=== PATIENT | female | born 1990 | race Caucasian/White ===

== ENCOUNTER 2016-12-29 05:29 | Inpatient (IN) | payer MEDICAID, OTHER ==
[2016-12-29] VITALS (8 sets, daily range): BP systolic 100–128; BP diastolic 56–85; PULSE 80–96; RESP 12–20; TEMP 96.9–98.8; O2SAT 98–100
[~2016-12-29 05:29] MED LIST: Z.0.NO CURRENT MEDS
[2016-12-29] MEDS ORDERED: ALPR.25 PO (05:54)
--- NOTE | 2016-12-29 06:01 | PD ---
HPI Chief Complaint: OD/ Ingestion Time Seen by Provider: 05:53 Travel History International Travel<30 days: No Contact w/Intl Traveler<30days: No Traveled to known affect area: No History of Present Illness HPI 26-year-old female was brought in by EMS after intentional Tylenol ingestion. Patient states that she took 30 pills of Tylenol PM around 4:45 AM. EMS was called. Per since brought to the ED for evaluation. Patient denies any headache. Patient denies any chest pain or shortness of breath. Patient denies abdominal pain. Patient states that she is about 11 weeks . Patient denies any vaginal discharge or bleeding. Patient denies any dysuria or frequency. Patient denies any fever chills. Patient denies any recent alcohol consumption. Patient denies other illicit drug abuse. PFSH Past Medical History Medical History: Denies Significant Hx Diminished Hearing: No ?: LMP: 10/08/16 Past Surgical History Surgical History: No Previous Surgery Social History Alcohol Use: Yes (OCCASIONALLY ) Tobacco Use: Yes (1/4PPD ) Substance Use: No (MARIJUANA ) Allergies-Medications (Allergen,Severity, Reaction): Coded Allergies: No Known Allergies (Verified , 03/12/08) Reported Meds & Prescriptions Reported Meds & Active Scripts Active Reported Xanax (Alprazolam) 0.25 Mg Tab 0.25 Mg PO Q4H PRN Review of Systems General / Constitutional: No: Fever Eyes: No: Visual changes HENT: No: Headaches Cardiovascular: No: Chest Pain or Discomfort Respiratory: No: Shortness of Breath Gastrointestinal: No: Abdominal Pain Genitourinary: No: Dysuria Musculoskeletal: No: Pain Skin: No Rash Neurologic: No: Weakness Psychiatric: No: Depression Endocrine: No: Polydipsia Hematologic/Lymphatic: No: Easy Bruising Physical Exam Narrative GENERAL: Well-nourished, well-developed patient. SKIN: Focused skin assessment warm/dry. HEAD: Normocephalic. EYES: No scleral icterus. No injection or drainage. NECK: Supple, trachea midline. No JVD or lymphadenopathy. CARDIOVASCULAR: Regular rate and rhythm without murmurs, gallops, or rubs. RESPIRATORY: Breath sounds equal bilaterally. No accessory muscle use. GASTROINTESTINAL: Abdomen soft, non-tender, nondistended. MUSCULOSKELETAL: No cyanosis, or edema. BACK: Nontender without obvious deformity. No CVA tenderness. Neurologic exam normal. Data Data Last Documented VS Vital Signs Date Time Temp Pulse Resp B/P (MAP) Pulse Ox O2 Delivery O2 Flow Rate FiO2 12/29/16 05:42 14 99 12/29/16 05:38 97.8 94 128/78 (95) Orders Orders Electrocardiogram (12/29/16 05:53) Complete Blood Count With Diff (12/29/16 05:53) Comprehensive Metabolic Panel (12/29/16 05:53) Prothrombin Time / Inr (Pt) (12/29/16 05:53) Act Partial Throm Time (Ptt) (12/29/16 05:53) Urinalysis - C+S If Indicated (12/29/16 05:53) Iv Access Insert/Monitor (12/29/16 05:53) Ecg Monitoring (12/29/16 05:53) Oximetry (12/29/16 05:53) Drug Screen, Random Urine (12/29/16 05:53) Alcohol (Ethanol) (12/29/16 05:53) Salicylates (Aspirin) (12/29/16 05:53) Tylenol (Acetaminophen) (12/29/16 05:53) Gc And Chlamydia Pcr (12/29/16 05:53) Wet Prep Profile (12/29/16 05:53) Sodium Chlor 0.9% 1000 Ml Inj (Ns 1000 M (12/29/16 06:00) MDM Medical Decision Making Medical Screen Exam Complete: Yes Emergency Medical Condition: Yes Differential Diagnosis Differential diagnosis including Tylenol overdose, depression, suicidal. Narrative Course 26-year-old female intentional overdose on Tylenol. Poison control contacted. Demetrio Martin MD Dec 29, 2016 06:01
[2016-12-29] MEDS: SODIUM CHLOR 0.9% 1000 ML INJ 1,000 ML IV SCH ×3 (06:25→20:39)
[2016-12-29 06:53] LABS: AUTOMATED NEUTROPHIL # 5.1 TH/MM3 (1.8-7.7); BASOPHIL # 0.1 TH/MM3 (0-0.2); BASOPHIL % 0.6 % (0.0-2.0); EOSINOPHIL # 0.5 TH/MM3 (0-0.4); EOSINOPHIL % 5.3 % (0.0-4.0); HEMATOCRIT 32.7 % (35.0-46.0); HEMO FLAGS DIFF FINAL; LYMPH % 28.8 % (9.0-44.0); LYMPHOCYTE # 2.6 TH/MM3 (1.0-4.8); MEAN CELL VOLUME 87.6 FL (80.0-100.0); MEAN CORPUSCULAR HEMOGLOBIN 28.3 PG (27.0-34.0); MEAN CORPUSCULAR HGB CONC 32.3 % (32.0-36.0); MONO % 8.3 % (0.0-8.0); PLATELET COUNT 373 TH/MM3 (150-450); RED BLOOD COUNT 3.73 MIL/MM3 (4.00-5.30); RED CELL DISTRIBUTION WIDTH 16.7 % (11.6-17.2); WHITE BLOOD COUNT 8.9 TH/MM3 (4.0-11.0)
[2016-12-29 07:14] LABS: APTT (PATIENT) 29.5 SEC (24.3-30.1); INTERNATIONAL NORMALIZED RATIO 1.1 RATIO; PROTHROMBIN TIME - PATIENT 11.9 SEC (9.8-11.6)
[2016-12-29 07:21] LABS: ACETAMINOPHEN 78.7 MCG/ML (10.0-30.0); ALT (GPT) 15 U/L (10-53); ANION GAP 10 MEQ/L (5-15); AST (GOT) 13 U/L (15-37); BICARBONATE 23.2 MEQ/L (21.0-32.0); BLOOD UREA NITROGEN 9 MG/DL (7-18); CHLORIDE 107 MEQ/L (98-107); GLOMERULAR FILTRATION RATE 122 ML/MIN (>89); SODIUM (NA) 140 MEQ/L (136-145)
[2016-12-29 07:23] LABS: ALKALINE PHOSPHATASE 68 U/L (45-117); TOTAL BILIRUBIN ADULT 0.3 MG/DL (0.2-1.0)
[2016-12-29 07:30] LABS: ALCOHOL LESS THAN 3 MG/DL (0-5)
[2016-12-29] MEDS ORDERED: ONDANSETRON HCL 4 MG/2 ML VIAL IV PUSH ONE (07:30)
[2016-12-29] MEDS ORDERED: SODIUM CHLOR 0.9% 1000 ML INJ 1,000 ML IV ONE (09:49)
[2016-12-29] MEDS ORDERED: ACETYLCYSTEINE 20% 6,000 MG/30 ML ORAL SOLN VIAL PO ONE (10:00)
[2016-12-29] MEDS ORDERED: SODIUM CHLORIDE 0.9% FLUSH 10 ML FLUSH IV FLUSH PRN ×2 (10:15→10:30)
--- NOTE | 2016-12-29 10:16 | HHI.HP ---
[facility] Service Family Medicine Primary Care Physician Everette Emmanuel M.D. Admission Diagnosis Diagnoses: International Travel<30 Days: No Contact w/Intl Traveler<30days: No Known Affected Area: No History of Present Illness 26 y/o female, 11wks gestation by LMP & TVUS, presents s/p intentional tylenol PM overdose between 3-4AM. Pt found out her was cheating on her with her best friend and she intentionally took 30 tylenol PM. She immediately told her mom, who called the ambulance and brought her to the ER. Pt did not feel sx until she started receiving rx in the ER; she vomited blue/green 1 time. She currently feels some anxiety and palpitations as if she is having a heart attack. She says she has felt an episode like this before, 1 month ago. This is the first time the pt has attempted to hurt herself. She has never tried to hurt anyone else. Her intention was not to hurt her baby. She has 2 kids at home and does feel safe at home. She does think the kids are safe with the , as he has never tried to hurt the kids or anyone else. Pt denies any radiating chest pain/ SOB/dizzyness. She does feel tired and groggy. Pt denies any abdominal pain, cxns, LOF, or VB. Her nausea is better s/p zofran. (Elizabeth Aguilera MD R2) Review of Systems ROS Limitations: Intoxication Constitutional: DENIES: Fever, Weight gain Endocrine: DENIES: Heat/cold intolerance, Polydipsia Eyes: DENIES: Photosensitivity, Double Vision Ears, nose, mouth, throat: DENIES: Throat pain, Hoarseness Respiratory: DENIES: Hemoptysis, Sputum production Cardiovascular: DENIES: Orthopnea, Claudication Gastrointestinal: DENIES: Abdominal pain, Black stools Genitourinary: DENIES: Sexual dysfunction, Urinary frequency Musculoskeletal: DENIES: Muscle aches, Stiffness Integumentary: DENIES: Pruritus, Rash Hematologic/lymphatic: DENIES: Bruising Immunologic/allergic: DENIES: Eczema Neurologic: DENIES: Abnormal gait, Headache Psychiatric: DENIES: Suicidal Ideation, Homicidal Ideation (Elizabeth Aguilera MD R2) Past Family Social History Past Medical History Obhx: at 11wk by TVUS and LMP 10/08/16, with +FH on last sonogram. Pt states in ER 1 month ago for subchorionic bleed. 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 home: feels safe at home, feels that kids are safe - per pt father the kids have been living with the grandpa in [place] since the mom slit her wrists 1 month ago, pt story is different from pt's father's story (Elizabeth Aguilera MD R2) Physical Exam Vital Signs Vital Signs Date Time Temp Pulse Resp B/P (MAP) Pulse Ox O2 Delivery O2 Flow Rate FiO2 12/29/16 09:57 81 17 100/56 (71) 100 Room Air 12/29/16 08:33 83 15 102/64 (77) 100 Room Air 12/29/16 06:01 12 98 12/29/16 05:42 14 99 12/29/16 05:38 97.8 94 14 128/78 (95) 98 Physical Exam GENERAL: This is a well-nourished, well-developed patient, in no apparent distress. pt is lying sleeping in bed when we come in for exam. throughout the H &P and exam the pt is spontaneously crying and visibly upset SKIN: No rashes, ecchymoses or lesions. Cool and dry. no excessive sweating HEAD: Atraumatic. Normocephalic. No temporal or scalp tenderness. EYES: fixed small pupils bilaterally. slight nystagmus noted on visual exam, vision intact. Extraocular motions intact. No scleral icterus. No injection or drainage. ENT: Nose without bleeding, purulent drainage or septal hematoma. Throat without erythema, tonsillar hypertrophy or exudate. Uvula midline. Airway patent. NECK: Trachea midline. No JVD or lymphadenopathy. Supple, nontender, no meningeal signs. CARDIOVASCULAR: Regular rate and rhythm without murmurs, gallops, or rubs. RESPIRATORY: Clear to auscultation. Breath sounds equal bilaterally. No wheezes , rales, or rhonchi. GASTROINTESTINAL: Abdomen soft, non-tender, nondistended. No hepato-splenomegaly , or palpable masses. No guarding. MUSCULOSKELETAL: Extremities without clubbing, cyanosis, or edema. No joint tenderness, effusion, or edema noted. No calf tenderness. Negative Homans sign bilaterally. NEUROLOGICAL: Awake and alert. Cranial nerves II through XII intact. Motor and sensory grossly within normal limits. Five out of 5 muscle strength in all muscle groups. Normal speech. Laboratory Laboratory Tests Test 12/29/16 06:10 12/29/16 08:45 White Blood Count 8.9 Red Blood Count 3.73 Hemoglobin 10.6 Hematocrit 32.7 Mean Corpuscular Volume 87.6 Mean Corpuscular Hemoglobin 28.3 Mean Corpuscular Hemoglobin Concent 32.3 Red Cell Distribution Width 16.7 Platelet Count 373 Mean Platelet Volume 7.3 Neutrophils (%) (Auto) 57.0 Lymphocytes (%) (Auto) 28.8 Monocytes (%) (Auto) 8.3 Eosinophils (%) (Auto) 5.3 Basophils (%) (Auto) 0.6 Neutrophils # (Auto) 5.1 Lymphocytes # (Auto) 2.6 Monocytes # (Auto) 0.7 Eosinophils # (Auto) 0.5 Basophils # (Auto) 0.1 CBC Comment DIFF FINAL Differential Comment Prothrombin Time 11.9 Prothromb Time International Ratio 1.1 Activated Partial Thromboplast Time 29.5 Blood Urea Nitrogen 9 Creatinine 0.59 Random Glucose 77 Total Protein 7.0 Albumin 3.4 Calcium Level 8.8 Alkaline Phosphatase 68 Aspartate Amino Transf (AST/SGOT) 13 Alanine Aminotransferase (ALT/SGPT) 15 Total Bilirubin 0.3 Sodium Level 140 Potassium Level 3.0 Chloride Level 107 Carbon Dioxide Level 23.2 Anion Gap 10 Estimat Glomerular Filtration Rate 122 Salicylates Level 1.8 Acetaminophen Level 78.7 103.5 Ethyl Alcohol Level LESS THAN 3 (Elizabeth Aguilera MD R2) Result Diagram: 12/29/1660912/29/16609 Caprini VTE Risk Assessment Caprini VTE Risk Assessment: No/Low Risk (score <= 1) Caprini Risk Assessment Model Point Value = 1 Point Value = 2 Point Value = 3 Point Value = 5 Age 41-60 Minor surgery BMI > 25 kg/m2 Swollen legs Varicose veins or History of unexplained or recurrent spontaneous Oral contraceptives or hormone replacement Sepsis (< 1 month) Serious lung disease, including pneumonia (< 1 month) Abnormal pulmonary function Acute myocardial infarction Congestive heart failure (< 1 month) History of inflammatory bowel disease Medical patient at bed rest Age 61-74 Arthroscopic surgery Major open surgery (> 45 min) Laparoscopic surgery (> 45 min) Malignancy Confined to bed (> 72 hours) Immobilizing plaster cast Central venous access Age >= 75 History of VTE Family history of VTE Factor V Leiden Prothrombin [id number] Lupus anticoagulant Anticardiolipin antibodies Elevated serum homocysteine Heparin-induced thrombocytopenia Other congenital or acquired thrombophilia Stroke (< 1 month) Elective arthroplasty Hip, pelvis, or leg fracture Acute spinal cord injury (< 1 month) Prophylaxis Regimen Total Risk Factor Score Risk Level Prophylaxis Regimen 0-1 Low Early ambulation 2 Moderate Order ONE of the following: *Sequential Compression Device (SCD) *Heparin 5000 units SQ BID 3-4 Higher Order ONE of the following medications: *Heparin 5000 units SQ TID *Enoxaparin/Lovenox 40 mg SQ daily (WT < 150 kg, CrCl > 30 mL/min) *Enoxaparin/Lovenox 30 mg SQ daily (WT < 150 kg, CrCl > 10-29 mL/min) *Enoxaparin/Lovenox 30 mg SQ BID (WT < 150 kg, CrCl > 30 mL/min) AND/OR *Sequential Compression Device (SCD) 5 or more Highest Order ONE of the following medications: *Heparin 5000 units SQ TID (Preferred with Epidurals) *Enoxaparin/Lovenox 40 mg SQ daily (WT < 150 kg, CrCl > 30 mL/min) *Enoxaparin/Lovenox 30 mg SQ daily (WT < 150 kg, CrCl > 10-29 mL/min) *Enoxaparin/Lovenox 30 mg SQ BID (WT < 150 kg, CrCl > 30 mL/min) AND *Sequential Compression Device (SCD) (Elizabeth Aguilera MD R2) Assessment and Plan Assessment and Plan 26 y/o female, 11wks gestation , presents s/p intentional tylenol PM overdose Code Status full code, thad acted Discussed Condition With Dr. Ray, (Elizabeth Aguilera MD R2) Attending Attestation Patient seen and examined. Case reviewed and discussed with the resident team. Agree with plan of care as discussed with me and documented in the resident note. she was seen on admission in her hospital room. agree with Thad act and sitter. (Odalys Zamora MD) Problem List: (1) Attempted suicide ICD Codes: T14.91 - Suicide attempt Status: Acute Plan: Pt admitted attempt to harm herself - Case management consult - DCF consult for kids - Thad Acted on admission - Psychiatry consult - 1:1 sitter for risk of AMA (2) Acetaminophen overdose ICD Codes: T39.1X1A - Poisoning by 4-Aminophenol derivatives, accidental ( unintentional), initial encounter Status: Acute Plan: 30 tylenol between 3-4AM 72hr protocol initiated as per poison tox - Acetylcysteine 3500 mg every 4 by mouth; last dose will be at 6 AM on 01/01 - AST/ALT: 13/15, Alk Phos: 68, PT/INR: 11.9/29.5 - Acetaminophen: 78.7 --> 103.5 - follow-up CBC, CMP, PT/INR, acetaminophen lab levels; next lab draw at 6 PM and 6 AM - Trend Acetaminophen level - peak should s/p 4hrs administration ACS w/u - initial EKG negative, f/u repeat EKG at 6PM - f/u troponin at 6PM (3) STD exposure ICD Codes: Z20.2 - Contact with and (suspected) exposure to infections with a predominantly sexual mode of transmission Status: Chronic Plan: Patient concerned about possible STD exposure - Follow up HIV antibody screen - Follow up RPR screen - Follow-up gonorrhea/chlamydia testing (4) FEN/PPX Status: Chronic Plan: Fluids: NS Electrolytes: f/u CMP q12, wnl now Nutrition: speech therapy for clearance for PO DVT ppx: Heparin 5000 q8, SCDs/TEDS (Elizabeth Aguilera MD R2) Physician Certification 2 Midnight Certification Type: Admission for Inpatient Services Order for Inpatient Services The services are ordered in accordance with Medicare regulations or non- Medicare payer requirements, as applicable. In the case of services not specified as inpatient-only, they are appropriately provided as inpatient services in accordance with the 2-midnight benchmark. Estimated LOS (days): 2 days is the estimated time the patient will need to remain in the hospital, assuming treatment plan goals are met and no additional complications. Post-Hospital Plan: Home (Elizabeth Aguilera MD R2) Problem Qualifiers (1) Acetaminophen overdose: Elizabeth Aguilera MD R2 Dec 29, 2016 10:16 Odalys Zamora MD Dec 30, 2016 13:38
[2016-12-29] MEDS ORDERED: SENNOSIDES 8.6 MG TAB PO PRN (10:30)
[2016-12-29] MEDS ORDERED: BISACODYL 10 MG SUPP RECTAL PRN (10:30)
[2016-12-29] MEDS ORDERED: DOCUSATE SODIUM 50 MG/SENNA 8.6 MG TAB PO PRN (10:30)
[2016-12-29] MEDS ORDERED: MAGNESIUM HYDROXIDE SUSP 30 ML CUP PO PRN (10:30)
[2016-12-29] MEDS ORDERED: ONDANSETRON HCL 4 MG/2 ML VIAL IVP PRN (10:30)
[2016-12-29] MEDS ORDERED: NALOXONE HCL 0.4 MG/ML AMP IV PRN (10:30)
[2016-12-29] MEDS ORDERED: LACTULOSE SYRUP 20 GM/30 ML CUP PO PRN (10:30)
--- NOTE | 2016-12-29 10:50 | PD ---
Data Data Last Documented VS Vital Signs Date Time Temp Pulse Resp B/P (MAP) Pulse Ox O2 Delivery O2 Flow Rate FiO2 12/29/16 09:57 81 17 100/56 (71) 100 Room Air 12/29/16 05:38 97.8 Orders Orders Electrocardiogram (12/29/16 05:53) Complete Blood Count With Diff (12/29/16 05:53) Comprehensive Metabolic Panel (12/29/16 05:53) Prothrombin Time / Inr (Pt) (12/29/16 05:53) Act Partial Throm Time (Ptt) (12/29/16 05:53) Urinalysis - C+S If Indicated (12/29/16 05:53) Iv Access Insert/Monitor (12/29/16 05:53) Ecg Monitoring (12/29/16 05:53) Oximetry (12/29/16 05:53) Drug Screen, Random Urine (12/29/16 05:53) Alcohol (Ethanol) (12/29/16 05:53) Salicylates (Aspirin) (12/29/16 05:53) Tylenol (Acetaminophen) (12/29/16 05:53) Gc And Chlamydia Pcr (12/29/16 05:53) Wet Prep Profile (12/29/16 05:53) Sodium Chlor 0.9% 1000 Ml Inj (Ns 1000 M (12/29/16 06:00) Tylenol (Acetaminophen) (12/29/16 08:45) Ondansetron Inj (Zofran Inj) (12/29/16 07:30) Acetylcysteine 20% Liq (Mucomyst 20% Liq (12/29/16 10:00) Acetylcysteine 20% Liq (Mucomyst 20% Liq (12/29/16 11:00) Sodium Chlor 0.9% 1000 Ml Inj (Ns 1000 M (12/29/16 09:49) Admit To Inpatient (12/29/16 ) Code Status (12/29/16 10:13) Vital Signs (Adult) ODILIA.Q4H (12/29/16 10:13) Activity Oob Ad Adriana (12/29/16 10:13) It Generalist / Telemetry ODILIA.Q8H (12/29/16 10:13) Notify Dr: Other (12/29/16 10:13) Resp Oxygen Michael C Titrat 1-4 L (12/29/16 ) Sodium Chloride 0.9% Flush (Ns Flush) (12/29/16 10:15) Sodium Chloride 0.9% Flush (Ns Flush) (12/29/16 21:00) Inpatient Certification (12/29/16 ) (Hub Use Only)Inp Phy Cons/Ref (12/29/16 ) Sodium Chloride 0.9% Flush (Ns Flush) (12/29/16 10:30) Sodium Chloride 0.9% Flush (Ns Flush) (12/29/16 21:00) Ondansetron Inj (Zofran Inj) (12/29/16 10:30) Comprehensive Metabolic Panel (12/30/16 06:00) Complete Blood Count With Diff (12/30/16 06:00) Prothrombin Time / Inr (Pt) (12/30/16 06:00) Pt Request For Service (12/29/16 10:21) Speech Therapy Consult-Eval/Tx (12/29/16 10:21) Case Management Consult (12/29/16 10:21) Scd Bilateral/Knee High ODILIA.BID (12/29/16 10:21) Naloxone Inj (Narcan Inj) (12/29/16 10:30) Docusate Sodium-Senna (Gema-Colace) (12/29/16 10:30) Magnesium Hydroxide Liq (Milk Of Magnesi (12/29/16 10:30) Sennosides (Senokot) (12/29/16 10:30) Bisacodyl Supp (Dulcolax Supp) (12/29/16 10:30) Lactulose Liq (Lactulose Liq) (12/29/16 10:30) Comprehensive Metabolic Panel (12/29/16 18:00) Prothrombin Time / Inr (Pt) (12/29/16 18:00) Tylenol (Acetaminophen) (12/29/16 18:00) Yfn Bilateral/Knee High ODILIA.QSHIFT (12/29/16 10:21) Admit Order (Ed Use Only) (12/29/16 ) Labs Laboratory Tests Test 12/29/16 06:10 12/29/16 08:45 White Blood Count 8.9 TH/MM3 Red Blood Count 3.73 MIL/MM3 Hemoglobin 10.6 GM/DL Hematocrit 32.7 % Mean Corpuscular Volume 87.6 FL Mean Corpuscular Hemoglobin 28.3 PG Mean Corpuscular Hemoglobin Concent 32.3 % Red Cell Distribution Width 16.7 % Platelet Count 373 TH/MM3 Mean Platelet Volume 7.3 FL Neutrophils (%) (Auto) 57.0 % Lymphocytes (%) (Auto) 28.8 % Monocytes (%) (Auto) 8.3 % Eosinophils (%) (Auto) 5.3 % Basophils (%) (Auto) 0.6 % Neutrophils # (Auto) 5.1 TH/MM3 Lymphocytes # (Auto) 2.6 TH/MM3 Monocytes # (Auto) 0.7 TH/MM3 Eosinophils # (Auto) 0.5 TH/MM3 Basophils # (Auto) 0.1 TH/MM3 CBC Comment DIFF FINAL Differential Comment Prothrombin Time 11.9 SEC Prothromb Time International Ratio 1.1 RATIO Activated Partial Thromboplast Time 29.5 SEC Blood Urea Nitrogen 9 MG/DL Creatinine 0.59 MG/DL Random Glucose 77 MG/DL Total Protein 7.0 GM/DL Albumin 3.4 GM/DL Calcium Level 8.8 MG/DL Alkaline Phosphatase 68 U/L Aspartate Amino Transf (AST/SGOT) 13 U/L Alanine Aminotransferase (ALT/SGPT) 15 U/L Total Bilirubin 0.3 MG/DL Sodium Level 140 MEQ/L Potassium Level 3.0 MEQ/L Chloride Level 107 MEQ/L Carbon Dioxide Level 23.2 MEQ/L Anion Gap 10 MEQ/L Estimat Glomerular Filtration Rate 122 ML/MIN Salicylates Level 1.8 MG/DL Acetaminophen Level 78.7 MCG/ML 103.5 MCG/ML Ethyl Alcohol Level LESS THAN 3 MG/DL [facility] Supervised Visit with MOISE: Yes Narrative Course 26 year-old woman intentional acetaminophen overdose, nerve I cracker suicidality, elevated levels, about 11 weeks . Poison control recommends treatment based on elevated levels in . Patient will be admitted. By mouth Mucomyst ordered. Diagnosis Primary Impression: Acetaminophen overdose Additional Impression: Attempted suicide Admitting Information Admitting Physician Requests: Admit Colby Davila MD Dec 29, 2016 10:50
[2016-12-29] MEDS ORDERED: ACETYLCYSTEINE 20% 6,000 MG/30 ML ORAL SOLN VIAL PO SCH (11:00)
[2016-12-29 11:04] LABS: BLOOD, URINE NEG (NEG); COMMENT (UR) CULT NOT INDICATED; CULTURE IF INDICATED CULT NOT INDICATED; GLUCOSE,URINE NEG (NEG); KETONE, URINE 10 mg/dL (NEG); MUCUS URINE MOD /lpf (OCC); NITRITE,URINE NEG (NEG); PH, URINE 6.5 (5.0-8.5); SQUAMOUS EPITHELIAL CELL URINE 1 /hpf (0-5); URINE COLOR YELLOW (YELLW/STRAW)
[2016-12-29] MEDS ORDERED: POTASSIUM CHLORIDE 10 MEQ CONTROLLED RELEASE TAB PO ONE ×2 (11:30→16:00)
[2016-12-29] MEDS ORDERED: RESP: ALBUTEROL 2.5 MG/IPRATROPIUM 0.5 MG NEB (PRN) NEB (11:30)
[2016-12-29] MEDS ORDERED: FAMOTIDINE 20 MG TAB PO PRN (11:33)
[2016-12-29] MEDS: ACETYLCYSTEINE 20% 6,000 MG/30 ML ORAL SOLN VIAL PO SCH ×3 (14:46→20:36)
--- NOTE | 2016-12-29 15:39 | EKG ---
Date Performed: 12/29/2016 Time Performed: 05:50:46 PTAGE: 26 years EKG: Sinus rhythm POSSIBLE LEFT ATRIAL ENLARGEMENT POSSIBLE RIGHT VENTRICULAR CONDUCTION DELAY BORDERLINE ECG NO PREVIOUS TRACING DOCTOR: Rubio Ventura Interpretating Date/Time 12/29/2016 15:38:16
--- NOTE | 2016-12-29 19:02 | EKG ---
Date Performed: 12/29/2016 Time Performed: 18:03:08 PTAGE: 26 years EKG: Sinus rhythm WITH FIRST DEGREE AV BLOCK POSSIBLE RIGHT VENTRICULAR CONDUCTION DELAY ABNORMAL ECG PREVIOUS TRACING : 12/29/2016 05.50 Compared to prior tracing no significant change DOCTOR: Rubio Ventura Interpretating Date/Time 12/29/2016 19:01:24
[2016-12-29 19:50] LABS: INTERNATIONAL NORMALIZED RATIO 1.2 RATIO; PROTHROMBIN TIME - PATIENT 13.4 SEC (9.8-11.6)
[2016-12-29 20:19] LABS: ACETAMINOPHEN 8.5 MCG/ML (10.0-30.0); ALKALINE PHOSPHATASE 60 U/L (45-117); ALT (GPT) 20 U/L (10-53); ANION GAP 11 MEQ/L (5-15); AST (GOT) 13 U/L (15-37); BETA HCG QUANT 64380 MIU/ML (0-5); BICARBONATE 18.1 MEQ/L (21.0-32.0); BLOOD UREA NITROGEN 5 MG/DL (7-18); CHLORIDE 110 MEQ/L (98-107); GLOMERULAR FILTRATION RATE 181 ML/MIN (>89); MAGNESIUM 1.7 MG/DL (1.5-2.5); POTASSIUM 3.5 MEQ/L (3.5-5.1); SODIUM (NA) 139 MEQ/L (136-145); TOTAL BILIRUBIN ADULT 0.4 MG/DL (0.2-1.0)
[2016-12-29] MEDS: SODIUM CHLORIDE 0.9% FLUSH 10 ML FLUSH IV FLUSH SCH (20:36)
[2016-12-29] MEDS ORDERED: SODIUM CHLORIDE 0.9% FLUSH 10 ML FLUSH IV FLUSH SCH (21:00)
--- NOTE | 2016-12-29 22:06 | RADRPT ---
EXAM DATE/TIME: 12/29/2016 15:36 [place] COMPARISON: No previous studies available for comparison. INDICATIONS : Evaluate for Cardiac activity. LAB(S): Beta-hC MEDICAL HISTORY : . Dyspnea. Depression. Anxiety. SURGICAL HISTORY : None. ENCOUNTER: Initial ACUITY: 1 day PAIN SCORE: 0/10 LOCATION: Bilateral pelvis MEASUREMENTS: UTERUS: 9.9 x 8.2 x 7.0 cm ENDOMETRIAL STRIPE: >20 mm RIGHT OVARY: 3.0 x 2.2 x 1.6 cm LEFT OVARY: 2.9 x 1.9 x 1.9 cm FREE FLUID: Yes CROWN RUMP LENGTH: 4.3 cm = 11 WKS 1 DAYS FHR: 167 BPM FINDINGS: The patient has a single live intrauterine which demonstrates cardiac activity and mo vement. heart rate is documented at 167 bpm. The crown-rump length correlates to a gestationa l age of 11 weeks, 1 day. There is some free fluid within the cul-de-sac. The gestational sac size correlates to a gestational age of 9 weeks, 2 days which is significantly different than crown-rump l ength calculation. Correlation with serial Beta HCG levels is suggested. The ovaries are normal ariel aterally. There is no adnexal mass. CONCLUSION: 1. Single live intrauterine with cardiac activity and movement. Derma-rump length c orrelates to a gestational age of 11 weeks, 1 day and gestational sac size correlates to a gestationa l age of 9 weeks, 2 days which is significantly different than crown-rump length calculation. Correl ation with serial beta HCG levels is suggested. 2. Free fluid within the cul-de-sac. 3. No evidence of adnexal mass. Chauncey Stovall MD on December 29, 2016 at 21:50 Board Certified Radiologist. This report was verified electronically.
[2016-12-29] MEDS ORDERED: CALCIUM CARBONATE 1.25 GM (CA 500 MG) TAB PO ONE (23:00)
[2016-12-30] MEDS: ACETYLCYSTEINE 20% 6,000 MG/30 ML ORAL SOLN VIAL PO SCH ×3 (02:12→09:12)
[2016-12-30] MEDS: SODIUM CHLOR 0.9% 1000 ML INJ 1,000 ML IV SCH ×2 (04:41→14:11)
[2016-12-30 05:19] LABS: BASOPHIL % 0.5 % (0.0-2.0); EOSINOPHIL # 0.4 TH/MM3 (0-0.4); EOSINOPHIL % 4.6 % (0.0-4.0); HEMATOCRIT 34.7 % (35.0-46.0); HEMO FLAGS DIFF FINAL; LYMPH % 34.2 % (9.0-44.0); LYMPHOCYTE # 3.2 TH/MM3 (1.0-4.8); MEAN CELL VOLUME 87.4 FL (80.0-100.0); MEAN CORPUSCULAR HEMOGLOBIN 28.9 PG (27.0-34.0); MEAN CORPUSCULAR HGB CONC 33.1 % (32.0-36.0); NEUT % 53.7 % (16.0-70.0); PLATELET COUNT 340 TH/MM3 (150-450); RED BLOOD COUNT 3.97 MIL/MM3 (4.00-5.30); RED CELL DISTRIBUTION WIDTH 16.6 % (11.6-17.2); WHITE BLOOD COUNT 9.2 TH/MM3 (4.0-11.0)
[2016-12-30 05:21] LABS: INTERNATIONAL NORMALIZED RATIO 1.2 RATIO; PROTHROMBIN TIME - PATIENT 13.3 SEC (9.8-11.6)
[2016-12-30 05:42] LABS: ANION GAP 11 MEQ/L (5-15); AST (GOT) 13 U/L (15-37); BICARBONATE 16.5 MEQ/L (21.0-32.0); BLOOD UREA NITROGEN 3 MG/DL (7-18); CHLORIDE 106 MEQ/L (98-107); GLOMERULAR FILTRATION RATE 257 ML/MIN (>89); POTASSIUM 3.8 MEQ/L (3.5-5.1); SODIUM (NA) 133 MEQ/L (136-145)
[2016-12-30 05:44] LABS: ALT (GPT) 17 U/L (10-53)
[2016-12-30 05:46] LABS: ALKALINE PHOSPHATASE 57 U/L (45-117); TOTAL BILIRUBIN ADULT 0.3 MG/DL (0.2-1.0)
[2016-12-30 08:00] VITALS: BP 106/58; PULSE 95; RESP 20; TEMP 98.1; O2SAT 98
[2016-12-30] MEDS: SODIUM CHLORIDE 0.9% FLUSH 10 ML FLUSH IV FLUSH SCH ×2 (09:00→20:07)
--- NOTE | 2016-12-30 11:58 | EKG ---
Date Performed: 12/30/2016 Time Performed: 11:07:38 PTAGE: 26 years EKG: SINUS TACHYCARDIA POSSIBLE RIGHT VENTRICULAR CONDUCTION DELAY ABNORMAL RHYTHM ECG PREVIOUS TRACING : 12/29/2016 18.03 Compared to prior tracing no significant change DOCTOR: Rubio Ventura Interpretating Date/Time 12/30/2016 11:57:20
[2016-12-30 12:00] VITALS: BP 116/61; PULSE 93; RESP 20; TEMP 97.9; O2SAT 95
[2016-12-30 12:36] LABS: CHLAMYDIA PCR NOT DETECTED (NOT DETECT); NEISSERIA PCR NOT DETECTED (NOT DETECT)
--- NOTE | 2016-12-30 13:22 | HHI.HP ---
[facility] Service Family Medicine Primary Care Physician Everette Emmanuel M.D. Admission Diagnosis Diagnoses: (1) Attempted suicide Diagnosis: Principal (2) Acetaminophen overdose Diagnosis: Principal (3) STD exposure Diagnosis: Principal (4) FEN/PPX Diagnosis: Principal International Travel<30 Days: No Contact w/Intl Traveler<30days: No Known Affected Area: No History of Present Illness Ms Gonsalves is a 26 y/o female, 11wks gestation by LMP & TVUS, who presented s/p intentional tylenol PM overdose between 3-4AM. Pt found out her was cheating on her with her best friend and she intentionally took 30 tylenol PM. She immediately told her mom, who called the ambulance and brought her to the ER. Pt did not feel sx until she started receiving rx in the ER; she vomited blue/green 1 time. She had some anxiety and palpitations as if she is having a heart attack initially. She says she has felt an episode like this before, 1 month ago. This is the first time the pt has attempted to hurt herself per pt. She has never tried to hurt anyone else. Her intention was not to hurt her baby. She has 2 kids at home and does feel safe at home. She does think the kids are safe with the , as he has never tried to hurt the kids or anyone else. Pt denies any radiating chest pain/ SOB/dizziness. She did feel tired and groggy. Pt denies any abdominal pain, cxns, LOF, or VB. Her nausea is better s/p zofran. Overnight she was on her murray act and is unhappy about multiple things including lack of silverware etc. It was explained that on a murray act things are more regulated. She feels better Physically and hopes she can go home. She had denied any prior attempts to hurt herself. However, her father had reported she had cut herself in the past month. Review of Systems Other ROS Limitations: Intoxication initially, more alert today Constitutional: DENIES: Fever, Weight gain Endocrine: DENIES: Heat/cold intolerance, Polydipsia Eyes: DENIES: Photosensitivity, Double Vision Ears, nose, mouth, throat: DENIES: Throat pain, Hoarseness Respiratory: DENIES: Hemoptysis, Sputum production Cardiovascular: DENIES: Orthopnea, Claudication Gastrointestinal: DENIES: Abdominal pain, Black stools Genitourinary: DENIES: Sexual dysfunction, Urinary frequency Musculoskeletal: DENIES: Muscle aches, Stiffness Integumentary: DENIES: Pruritus, Rash Hematologic/lymphatic: DENIES: Bruising Immunologic/allergic: DENIES: Eczema Neurologic: DENIES: Abnormal gait, Headache Psychiatric: DENIES: Suicidal Ideation, Homicidal Ideation Past Family Social History Past Medical History Obhx: at 11wk by TVUS and LMP 10/08/16, with +FH on last sonogram. Pt states in ER 1 month ago for subchorionic bleed. OBGYN is - x 2 (6 and 1 yr) - smoked during pregnancies Mental Health: - slitting wrists 1 month ago (per father) - slitting wrists this week (assumed) Past Surgical History none Allergies: Coded Allergies: No Known Allergies (Verified , 03/12/08) Family History Mother, Aunts : bipolar, unknown psychiatric disorders (possible schizophrenia) Social History smoke 1/2 ppd /day x 10 years (has cut down to 5cigs/day while ), social drinker - last drink a few months ago, denies alcohol abuse, +marijuana, denies IV/other drugs. 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: feels safe at home, feels that kids are safe - per pt father the kids have been living with the grandpa in [place] since the mom slit her wrists 1 month ago, pt story is different from pt's father's story Physical Exam Vital Signs Vital Signs Date Time Temp Pulse Resp B/P (MAP) Pulse Ox O2 Delivery O2 Flow Rate FiO2 12/30/16 12:00 97.9 93 20 116/61 (79) 95 12/30/16 08:00 98.1 95 20 106/58 (74) 98 12/29/16 20:12 93 12/29/16 20:00 98.8 96 17 121/63 (82) 98 12/29/16 16:00 98.0 80 19 117/60 (79) 98 Physical Exam GENERAL: This is a well-nourished, well-developed patient, in no apparent distress. pt was lying sleeping in bed when we come in for exam. yesterday the pt would spontaneously cry and was visibly upset. today she is more angry. her was in the room this am SKIN: No rashes, ecchymoses or lesions. Cool and dry. no excessive sweating HEAD: Atraumatic. Normocephalic. No temporal or scalp tenderness. EYES: fixed small pupils bilaterally. slight nystagmus noted on visual exam initially, vision intact. Extraocular motions intact. No scleral icterus. No injection or drainage. ENT: Nose without bleeding, purulent drainage or septal hematoma. Throat without erythema, tonsillar hypertrophy or exudate. Uvula midline. Airway patent. NECK: Trachea midline. No JVD or lymphadenopathy. Supple, nontender, no meningeal signs. CARDIOVASCULAR: Regular rate and rhythm without murmurs, gallops, or rubs. RESPIRATORY: Clear to auscultation. Breath sounds equal bilaterally. No wheezes , rales, or rhonchi. GASTROINTESTINAL: Abdomen soft, non-tender, nondistended. No hepato-splenomegaly , or palpable masses. No guarding. MUSCULOSKELETAL: Extremities without clubbing, cyanosis, or edema. No joint tenderness, effusion, or edema noted. No calf tenderness. Negative Homans sign bilaterally. NEUROLOGICAL: Awake and alert. Cranial nerves II through XII intact. Motor and sensory grossly within normal limits. Five out of 5 muscle strength in all muscle groups. Normal speech. Laboratory Laboratory Tests Test 12/29/16 18:38 12/30/16 00:57 12/30/16 04:20 Prothrombin Time 13.4 13.3 Prothromb Time International Ratio 1.2 1.2 Blood Urea Nitrogen 5 3 Creatinine 0.42 0.31 Random Glucose 75 79 Total Protein 6.0 6.1 Albumin 3.0 3.1 Calcium Level 7.4 7.7 Magnesium Level 1.7 Alkaline Phosphatase 60 57 Aspartate Amino Transf (AST/SGOT) 13 13 Alanine Aminotransferase (ALT/SGPT) 20 17 Total Bilirubin 0.4 0.3 Sodium Level 139 133 Potassium Level 3.5 3.8 Chloride Level 110 106 Carbon Dioxide Level 18.1 16.5 Anion Gap 11 11 Estimat Glomerular Filtration Rate 181 257 Protein Corrected Calcium 8.0 Troponin I LESS THAN 0.02 LESS THAN 0.02 Human Chorionic Gonadotropin, Quant 48428 Acetaminophen Level 8.5 LESS THAN 2.0 White Blood Count 9.2 Red Blood Count 3.97 Hemoglobin 11.5 Hematocrit 34.7 Mean Corpuscular Volume 87.4 Mean Corpuscular Hemoglobin 28.9 Mean Corpuscular Hemoglobin Concent 33.1 Red Cell Distribution Width 16.6 Platelet Count 340 Mean Platelet Volume 7.5 Neutrophils (%) (Auto) 53.7 Lymphocytes (%) (Auto) 34.2 Monocytes (%) (Auto) 7.0 Eosinophils (%) (Auto) 4.6 Basophils (%) (Auto) 0.5 Neutrophils # (Auto) 5.0 Lymphocytes # (Auto) 3.2 Monocytes # (Auto) 0.6 Eosinophils # (Auto) 0.4 Basophils # (Auto) 0.0 CBC Comment DIFF FINAL Differential Comment Result Diagram: 12/30/1641912/30/16419 Caprini VTE Risk Assessment Caprini VTE Risk Assessment: No/Low Risk (score <= 1) Caprini Risk Assessment Model Point Value = 1 Point Value = 2 Point Value = 3 Point Value = 5 Age 41-60 Minor surgery BMI > 25 kg/m2 Swollen legs Varicose veins or History of unexplained or recurrent spontaneous Oral contraceptives or hormone replacement Sepsis (< 1 month) Serious lung disease, including pneumonia (< 1 month) Abnormal pulmonary function Acute myocardial infarction Congestive heart failure (< 1 month) History of inflammatory bowel disease Medical patient at bed rest Age 61-74 Arthroscopic surgery Major open surgery (> 45 min) Laparoscopic surgery (> 45 min) Malignancy Confined to bed (> 72 hours) Immobilizing plaster cast Central venous access Age >= 75 History of VTE Family history of VTE Factor V Leiden Prothrombin [id number] Lupus anticoagulant Anticardiolipin antibodies Elevated serum homocysteine Heparin-induced thrombocytopenia Other congenital or acquired thrombophilia Stroke (< 1 month) Elective arthroplasty Hip, pelvis, or leg fracture Acute spinal cord injury (< 1 month) Prophylaxis Regimen Total Risk Factor Score Risk Level Prophylaxis Regimen 0-1 Low Early ambulation 2 Moderate Order ONE of the following: *Sequential Compression Device (SCD) *Heparin 5000 units SQ BID 3-4 Higher Order ONE of the following medications: *Heparin 5000 units SQ TID *Enoxaparin/Lovenox 40 mg SQ daily (WT < 150 kg, CrCl > 30 mL/min) *Enoxaparin/Lovenox 30 mg SQ daily (WT < 150 kg, CrCl > 10-29 mL/min) *Enoxaparin/Lovenox 30 mg SQ BID (WT < 150 kg, CrCl > 30 mL/min) AND/OR *Sequential Compression Device (SCD) 5 or more Highest Order ONE of the following medications: *Heparin 5000 units SQ TID (Preferred with Epidurals) *Enoxaparin/Lovenox 40 mg SQ daily (WT < 150 kg, CrCl > 30 mL/min) *Enoxaparin/Lovenox 30 mg SQ daily (WT < 150 kg, CrCl > 10-29 mL/min) *Enoxaparin/Lovenox 30 mg SQ BID (WT < 150 kg, CrCl > 30 mL/min) AND *Sequential Compression Device (SCD) Assessment and Plan Assessment and Plan 26 y/o female, 11wks gestation , presents s/p intentional tylenol PM overdose Problem List: (1) Attempted suicide ICD Codes: T14.91 - Suicide attempt Status: Acute Plan: Pt admitted attempt to harm herself - Case management consulted - DCF consult for kids - Thad Acted on admission - Psychiatry consult - 1:1 sitter for risk of AMA or repeat suicide attempt (2) Acetaminophen overdose ICD Codes: T39.1X1A - Poisoning by 4-Aminophenol derivatives, accidental ( unintentional), initial encounter Status: Acute Plan: 30 tylenol between 3-4AM 72hr protocol initiated as per poison tox - Acetylcysteine 3500 mg every 4 by mouth; last dose will be at 6 AM on 01/01. however, her tylenol levels are better now and she may not need the whole protocol - AST/ALT: 13/15, Alk Phos: 68, PT/INR: 11.9/29.5 - Acetaminophen: 78.7 --> 103.5 - follow-up CBC, CMP, PT/INR, acetaminophen lab levels; following protocol per poison control - Trended Acetaminophen level - peak should s/p 4hrs administration ACS w/u - initial EKG negative, f/u repeat EKG at 6PM - f/u troponin at 6PM (3) STD exposure ICD Codes: Z20.2 - Contact with and (suspected) exposure to infections with a predominantly sexual mode of transmission Status: Chronic Plan: Patient concerned about possible STD exposure - Follow up HIV antibody screen - Follow up RPR screen - Follow-up gonorrhea/chlamydia testing (4) FEN/PPX Status: Chronic Plan: Fluids: NS Electrolytes: f/u CMP q12, replace as necessary Nutrition: regular diet DVT ppx: Heparin 5000 q8, SCDs/TEDS Physician Certification 2 Midnight Certification Type: Admission for Inpatient Services Order for Inpatient Services The services are ordered in accordance with Medicare regulations or non- Medicare payer requirements, as applicable. In the case of services not specified as inpatient-only, they are appropriately provided as inpatient services in accordance with the 2-midnight benchmark. Estimated LOS (days): 3 3 days is the estimated time the patient will need to remain in the hospital, assuming treatment plan goals are met and no additional complications. Post-Hospital Plan: Not yet determined Notes: she may need inpatient Psychiatric bed with suicide attempt Problem Qualifiers (1) Acetaminophen overdose: Odalys Zamora MD Dec 30, 2016 13:21
[2016-12-30 16:00] VITALS: BP 123/58; PULSE 99; RESP 20; TEMP 98.7; O2SAT 96
--- NOTE | 2016-12-30 17:25 | PD.PSY.CON ---
Provisional Diagnosis Admission Date Dec 29, 2016 at 10:45 [place]. Adjustment disorder with mixed disturbance of emotion and conduct History of Present Illness Service Psychiatry Consult Requested By Attending physician Reason for Consult Tylenol overdose Primary Care Physician Everette Emmanuel M.D. HPI Patient is reportedly 11 weeks and overdosed on Tylenol PM prior to admission. Reportedly took approximately 40 Tylenol PM tablets. Review of Systems Except as stated in HPI: all other systems reviewed are Neg Past Family Social History Coded Allergies: No Known Allergies (Verified , 03/12/08) Reported Medications Alprazolam (Xanax) 0.25 Mg Tab, 0.25 MG PO Q4H Y for ANXIETY, TAB 0 Refills 12/29/16 Discontinued Reported Medications Miscellaneous (No Current Meds) Misc, 0 Refills 03/12/08 Current Medications Medications (Trade) Dose Ordered Sig/Loulou Route Start Time Stop Time Status Last Admin Sodium Chloride 1,000 ml @ 125 mls/hr Q8H IV 12/29/16 06:00 12/30/16 14:11 (NS Flush) 2 ml UNSCH PRN IV FLUSH 12/29/16 10:30 (NS Flush) 2 ml BID IV FLUSH 12/29/16 21:00 (Zofran Inj) 4 mg Q6H PRN IVP 12/29/16 10:30 (Narcan Inj) 0.4 mg UNSCH PRN IV 12/29/16 10:30 (Milk Of Magnesia Liq) 30 ml Q12H PRN PO 12/29/16 10:30 (Senokot) 17.2 mg Q12H PRN PO 12/29/16 10:30 (Dulcolax Supp) 10 mg DAILY PRN RECTAL 12/29/16 10:30 (Lactulose Liq) 30 ml DAILY PRN PO 12/29/16 10:30 (Duoneb Neb) 1 ampule Q6HR NEB PRN NEB 12/29/16 11:30 (Pepcid) 20 mg BID PRN PO 12/29/16 11:33 Physical Exam Vital Signs Vital Signs Date Time Temp Pulse Resp B/P (MAP) Pulse Ox O2 Delivery O2 Flow Rate FiO2 12/30/16 12:00 97.9 93 20 116/61 (79) 95 12/29/16 09:57 Room Air I/O 12/30/16 12/30/16 12/31/16 08:00 16:00 00:00 Intake Total 2949 ml Balance 2949 ml Lab Results Test 12/29/16 18:38 12/30/16 00:57 12/30/16 04:20 Prothrombin Time 13.4 SEC 13.3 SEC Prothromb Time International Ratio 1.2 RATIO 1.2 RATIO Blood Urea Nitrogen 5 MG/DL 3 MG/DL Creatinine 0.42 MG/DL 0.31 MG/DL Random Glucose 75 MG/DL 79 MG/DL Total Protein 6.0 GM/DL 6.1 GM/DL Albumin 3.0 GM/DL 3.1 GM/DL Calcium Level 7.4 MG/DL 7.7 MG/DL Magnesium Level 1.7 MG/DL Alkaline Phosphatase 60 U/L 57 U/L Aspartate Amino Transf (AST/SGOT) 13 U/L 13 U/L Alanine Aminotransferase (ALT/SGPT) 20 U/L 17 U/L Total Bilirubin 0.4 MG/DL 0.3 MG/DL Sodium Level 139 MEQ/L 133 MEQ/L Potassium Level 3.5 MEQ/L 3.8 MEQ/L Chloride Level 110 MEQ/L 106 MEQ/L Carbon Dioxide Level 18.1 MEQ/L 16.5 MEQ/L Anion Gap 11 MEQ/L 11 MEQ/L Estimat Glomerular Filtration Rate 181 ML/MIN 257 ML/MIN Protein Corrected Calcium 8.0 MG/DL Troponin I LESS THAN 0.02 NG/ML LESS THAN 0.02 NG/ML Human Chorionic Gonadotropin, Quant 06571 MIU/ML Acetaminophen Level 8.5 MCG/ML LESS THAN 2.0 MCG/ML White Blood Count 9.2 TH/MM3 Red Blood Count 3.97 MIL/MM3 Hemoglobin 11.5 GM/DL Hematocrit 34.7 % Mean Corpuscular Volume 87.4 FL Mean Corpuscular Hemoglobin 28.9 PG Mean Corpuscular Hemoglobin Concent 33.1 % Red Cell Distribution Width 16.6 % Platelet Count 340 TH/MM3 Mean Platelet Volume 7.5 FL Neutrophils (%) (Auto) 53.7 % Lymphocytes (%) (Auto) 34.2 % Monocytes (%) (Auto) 7.0 % Eosinophils (%) (Auto) 4.6 % Basophils (%) (Auto) 0.5 % Neutrophils # (Auto) 5.0 TH/MM3 Lymphocytes # (Auto) 3.2 TH/MM3 Monocytes # (Auto) 0.6 TH/MM3 Eosinophils # (Auto) 0.4 TH/MM3 Basophils # (Auto) 0.0 TH/MM3 CBC Comment DIFF FINAL Differential Comment Assessment & Plan Problem List: (1) Adjustment disorder with mixed disturbance of emotions and conduct ICD Codes: F43.25 - Adjustment disorder with mixed disturbance of emotions and conduct Assessment & Plan Estimated LOS: days please call psychiatrist on-call when patient medically cleared. Patient needs psychiatric hospitalization for further evaluation and treatment. Aguilar Pereira MD Dec 30, 2016 17:25
[2016-12-30 20:00] VITALS: BP 141/75; PULSE 106; RESP 18; TEMP 96.7; O2SAT 96
[2016-12-30 20:02] VITALS: PULSE 99
[2016-12-30 22:11] VITALS: O2SAT 98
[2016-12-31 07:56] VITALS: O2SAT 97
[2016-12-31 08:00] VITALS: BP 106/52; PULSE 83; RESP 16; TEMP 97.9; O2SAT 98
[2016-12-31] MEDS: SODIUM CHLORIDE 0.9% FLUSH 10 ML FLUSH IV FLUSH SCH (08:39)
--- NOTE | 2016-12-31 09:01 | HHI.FPPN ---
Subjective Remarks Pt seen and examined bedside this a.m. Patient sleeping only walked into room, and when awakened the patient is in no acute distress. Patient states she feels better today and she is comfortable with the plan. The patient was able to talk to Dr. Pereira the psychiatrist, and she is comfortable with going to the inpatient floor and continuing counseling there. Patient denies any occult T eating or drinking fluids. The patient denies any nausea/vomiting. The patient denies any change in bowel movement. The patient denies any abdominal pain. Patient denies fever/chills overnight. The patient denies chest pain/shortness breath/dizziness. (Elizabeth Aguilera MD R2) Objective Vitals Vital Signs Date Time Temp Pulse Resp B/P (MAP) Pulse Ox O2 Delivery O2 Flow Rate FiO2 12/31/16 07:56 97 12/30/16 22:11 98 12/30/16 20:02 99 12/30/16 20:00 96.7 106 18 141/75 (97) 96 12/30/16 16:00 98.7 99 20 123/58 (79) 96 12/30/16 12:00 97.9 93 20 116/61 (79) 95 I/O 12/30/16 12/30/16 12/30/16 12/31/16 12/31/16 12/31/16 06:59 14:59 22:59 06:59 14:59 22:59 Intake Total 2829 ml 120 ml 3415 ml 240 ml Output Total 2000 ml Balance 2829 ml 120 ml 1415 ml 240 ml Intake Oral 240 ml 120 ml 2040 ml 240 ml IV Total 2589 ml 1375 ml Output Urine Total 2000 ml # Voids 2 1 2 # Bowel Movements 1 (Elizabeth Aguilera MD R2) Result Diagram: 12/30/16 0420 12/30/16 0420 Objective Remarks GENERAL: SKIN: Warm and dry. HEAD: Normocephalic. EYES: No scleral icterus. No injection or drainage. NECK: Supple, trachea midline. No JVD or lymphadenopathy. CARDIOVASCULAR: Regular rate and rhythm without murmurs, gallops, or rubs. RESPIRATORY: Breath sounds equal bilaterally. No accessory muscle use. GASTROINTESTINAL: Abdomen soft, non-tender, nondistended. MUSCULOSKELETAL: No cyanosis, or edema. BACK: Nontender without obvious deformity. No CVA tenderness. (Elizabeth Aguilera MD R2) A/P Assessment and Plan 26 y/o female, 11wks gestation , presented to ED s/p intentional tylenol PM overdose. Discharge Planning Patient is medically cleared as of today, and plan is to be discharged to psychiatric inpatient floor (Elizabeth Aguilera MD R2) Attending Attestation Patient seen and examined. Case reviewed and discussed with the resident team. Agree with plan of care as discussed with me and documented in the resident note. fortunately, her liver has done well and she is medically ready to be admitted to Psychiatry. Am very happy they will continue to care for her there as she is a risk for repeat problems at this time. (Odalys Zamora MD) Problem List: (1) Attempted suicide ICD Codes: T14.91 - Suicide attempt Status: Acute Plan: Pt admitted attempt to harm herself. Patient denies any current suicidal thoughts; she has no thoughts of hurting herself or hurting anyone else - Case management consulted - [facility] consult for jason Oneil Acted on admission - Psychiatry consult: Done. Plan for patient to be moved to psychiatric inpatient floor - 1:1 sitter for risk of AMA or repeat suicide attempt (2) Acetaminophen overdose ICD Codes: T39.1X1A - Poisoning by 4-Aminophenol derivatives, accidental ( unintentional), initial encounter Status: Acute Plan: 30 tylenol between 3-4AM on 12/29 72hr protocol initiated as per poison tox - Acetylcysteine 3500 mg every 4 by mouth; last dose will be at 6 AM on 01/01. however, her tylenol levels are decreased and protocol was d/c early : DONE NOW - initial labs: AST/ALT: 13/15, Alk Phos: 68, PT/INR: 11.9/29.5 - Acetaminophen: 78.7 --> 103.5 --> 8.5 --> less than 2.0 - following d/c of protocol per poison control ACS w/u - EKG negative x 2 - troponin negative x2 (3) STD exposure ICD Codes: Z20.2 - Contact with and (suspected) exposure to infections with a predominantly sexual mode of transmission Status: Chronic Plan: Patient concerned about possible STD exposure - Follow up HIV antibody screen - Follow up RPR screen - gonorrhea/chlamydia testing : negative (4) FEN/PPX Status: Chronic Plan: Fluids: NS Electrolytes:none Nutrition: regular diet DVT ppx: Heparin 5000 q8, SCDs/TEDS (Elizabeth Aguilera MD R2) Problem Qualifiers (1) Acetaminophen overdose: Elizabeth Aguilera MD R2 Dec 31, 2016 09:01 Odalys Zamora MD Dec 31, 2016 13:18
[2016-12-31 09:36] LABS: HEMATOCRIT 36.2 % (35.0-46.0); MEAN CORPUSCULAR HEMOGLOBIN 29.1 PG (27.0-34.0); PLATELET COUNT 353 TH/MM3 (150-450); RED BLOOD COUNT 4.11 MIL/MM3 (4.00-5.30); RED CELL DISTRIBUTION WIDTH 16.9 % (11.6-17.2); REVIEW FLAG FINAL; WHITE BLOOD COUNT 8.1 TH/MM3 (4.0-11.0)
[2016-12-31 10:06] LABS: BICARBONATE 22.7 MEQ/L (21.0-32.0); POTASSIUM 3.8 MEQ/L (3.5-5.1)
[2016-12-31] MEDS ORDERED: PREN29TA PO (10:38)
--- NOTE | 2016-12-31 10:39 | HHI.DCPOC ---
Discharge Care Plan Diagnosis: (1) Attempted suicide (2) Acetaminophen overdose Goals to Promote Your Health * To prevent worsening of your condition and complications * To maintain your health at the optimal level Directions to Meet Your Goals Take your medications as prescribed Follow your dietary instruction Follow activity as directed Keep your appointments as scheduled Take your immunizations and boosters as scheduled If your symptoms worsen call your PCP, if no PCP go to Urgent Care Center or Emergency Room Smoking is Dangerous to Your Health. Avoid second hand smoke Call the 24-hour hour crisis hotline for domestic abuse at Florian Ray MD R2 Dec 31, 2016 10:39
[2016-12-31] MEDS ORDERED: MULTIVIT/MIN/PREN/FOL AC/IRON PRENATAL TAB PO SCH (10:45)
--- NOTE | 2016-12-31 11:50 | HHI.DS ---
Discharge Summary Admission Date Dec 29, 2016 at 10:45 Discharge Date: Dec 31, 2016 Admitting Diagnosis (1) Attempted suicide Diagnosis: Principal Plan: Pt admitted attempt to harm herself. Patient denies any current suicidal thoughts; she has no thoughts of hurting herself or hurting anyone else - Case management consulted - [facility] consult for jason Oneil Acted on admission - Psychiatry consult: Done. Plan for patient to be moved to psychiatric inpatient floor - 1:1 sitter for risk of AMA or repeat suicide attempt ICD Codes: T14.91 - Suicide attempt Status: Acute (2) Acetaminophen overdose Diagnosis: Principal Plan: 30 tylenol between 3-4AM on 12/29 72hr protocol initiated as per poison tox - Acetylcysteine 3500 mg every 4 by mouth; last dose will be at 6 AM on 01/01. however, her tylenol levels are decreased and protocol was d/c early : DONE NOW - initial labs: AST/ALT: 13/15, Alk Phos: 68, PT/INR: 11.9/29.5 - Acetaminophen: 78.7 --> 103.5 --> 8.5 --> less than 2.0 - following d/c of protocol per poison control ACS w/u - EKG negative x 2 - troponin negative x2 ICD Codes: T39.1X1A - Poisoning by 4-Aminophenol derivatives, accidental ( unintentional), initial encounter Status: Acute (3) STD exposure Diagnosis: Principal Plan: Patient concerned about possible STD exposure - Follow up HIV antibody screen - Follow up RPR screen - gonorrhea/chlamydia testing : negative ICD Codes: Z20.2 - Contact with and (suspected) exposure to infections with a predominantly sexual mode of transmission Status: Chronic (4) FEN/PPX Diagnosis: Principal Plan: Fluids: NS Electrolytes:none Nutrition: regular diet DVT ppx: Heparin 5000 q8, SCDs/TEDS Status: Chronic Brief History Ms Gonsalves is a 26 y/o female, 11wks gestation by LMP & TVUS, who presented s/p intentional tylenol PM overdose between 3-4AM. Pt found out her was cheating on her with her best friend and she intentionally took 30 tylenol PM. She immediately told her mom, who called the ambulance and brought her to the ER. Pt did not feel sx until she started receiving rx in the ER; she vomited blue/green 1 time. She had some anxiety and palpitations as if she is having a heart attack initially. She says she has felt an episode like this before, 1 month ago. This is the first time the pt has attempted to hurt herself per pt. She has never tried to hurt anyone else. Her intention was not to hurt her baby. She has 2 kids at home and does feel safe at home. She does think the kids are safe with the , as he has never tried to hurt the kids or anyone else. Pt denies any radiating chest pain/ SOB/dizziness. She did feel tired and groggy. Pt denies any abdominal pain, cxns, LOF, or VB. Her nausea is better s/p zofran. Overnight she was on her oneil act and is unhappy about multiple things including lack of silverware etc. It was explained that on a oneil act things are more regulated. She feels better Physically and hopes she can go home. She had denied any prior attempts to hurt herself. However, her father had reported she had cut herself in the past month. CBC/BMP: 12/31/16 0739 12/31/16 0739 Significant Findings Laboratory Tests Test 12/29/16 06:10 12/29/16 08:45 12/29/16 10:20 12/29/16 13:08 Red Blood Count 3.73 MIL/MM3 (4.00-5.30) Hemoglobin 10.6 GM/DL (11.6-15.3) Hematocrit 32.7 % (35.0-46.0) Monocytes (%) (Auto) 8.3 % (0.0-8.0) Eosinophils (%) (Auto) 5.3 % (0.0-4.0) Eosinophils # (Auto) 0.5 TH/MM3 (0-0.4) Prothrombin Time 11.9 SEC (9.8-11.6) Aspartate Amino Transf (AST/SGOT) 13 U/L (15-37) Potassium Level 3.0 MEQ/L (3.5-5.1) Salicylates Level 1.8 MG/DL (2.8-20.0) Acetaminophen Level 78.7 MCG/ML (10.0-30.0) 103.5 MCG/ML (10.0-30.0) Urine Specific [place] GREATER THAN 1.050 Urine Protein 30 mg/dL (NEG-TRACE) Urine Ketones 10 mg/dL (NEG) Urine Leukocyte Esterase SMALL (NEG) Urine Mucus MOD /lpf (OCC) Urine Benzodiazepines Screen POS (NEG) Urine Cannabinoids Screen POS (NEG) Test 12/29/16 18:38 12/30/16 00:57 12/30/16 04:20 12/31/16 07:39 Prothrombin Time 13.4 SEC (9.8-11.6) 13.3 SEC (9.8-11.6) Blood Urea Nitrogen 5 MG/DL (7-18) 3 MG/DL (7-18) 3 MG/DL (7-18) Creatinine 0.42 MG/DL (0.50-1.00) 0.31 MG/DL (0.50-1.00) Total Protein 6.0 GM/DL (6.4-8.2) 6.1 GM/DL (6.4-8.2) Albumin 3.0 GM/DL (3.4-5.0) 3.1 GM/DL (3.4-5.0) Calcium Level 7.4 MG/DL (8.5-10.1) 7.7 MG/DL (8.5-10.1) Aspartate Amino Transf (AST/SGOT) 13 U/L (15-37) 13 U/L (15-37) Chloride Level 110 MEQ/L (98-107) 108 MEQ/L (98-107) Carbon Dioxide Level 18.1 MEQ/L (21.0-32.0) 16.5 MEQ/L (21.0-32.0) Protein Corrected Calcium 8.0 MG/DL (8.5-10.1) Troponin I LESS THAN 0.02 NG/ML LESS THAN 0.02 NG/ML Human Chorionic Gonadotropin, Quant 24285 MIU/ML (0-5) Acetaminophen Level 8.5 MCG/ML (10.0-30.0) LESS THAN 2.0 MCG/ML Red Blood Count 3.97 MIL/MM3 (4.00-5.30) Hemoglobin 11.5 GM/DL (11.6-15.3) Hematocrit 34.7 % (35.0-46.0) Eosinophils (%) (Auto) 4.6 % (0.0-4.0) Sodium Level 133 MEQ/L (136-145) PE at Discharge GENERAL: SKIN: Warm and dry. HEAD: Normocephalic. EYES: No scleral icterus. No injection or drainage. NECK: Supple, trachea midline. No JVD or lymphadenopathy. CARDIOVASCULAR: Regular rate and rhythm without murmurs, gallops, or rubs. RESPIRATORY: Breath sounds equal bilaterally. No accessory muscle use. GASTROINTESTINAL: Abdomen soft, non-tender, nondistended. MUSCULOSKELETAL: No cyanosis, or edema. BACK: Nontender without obvious deformity. No CVA tenderness. Hospital Course Patient was admitted to the hospital and immediately started on the acetaminophen toxicity protocol. She was given the recommended acetylcysteine bolus and continued with dosage every 4 hours by mouth per poison control recommendations. Her liver enzymes remained within normal limits as well as her coagulation studies. She tolerated the acetylcysteine protocol without complications and her most recent acetaminophen level on hospital day 2 was less than 2. Her drug screen was positive for benzodiazepines (on Xanax) and marijuana at the time of admission. Patient requested to be screened for STI's and was negative for chlamydia and gonorrhea with HIV and syphilis testing pending at the time of discharge. She was evaluated by psychiatry on hospital day 2 who diagnosed the patient with adjustment disorder with mixed disturbance of emotions and conduct and currently recommends the patient be discharged to inpatient psychiatry for further evaluation and management. On hospital day 3 the patient had completed the acetylcysteine protocol and was cleared medically for discharge. She was discharged into inpatient psychiatry on hospital day 3 for further management. At the time of discharge she was given a prescription for a vitamin and encouraged to follow-up with her BEAUTY DIRECTOR and PCP within one week. Pt Condition on Discharge: Stable Discharge Disposition: Disc to Psych Care Fac Discharge Instructions DIET: Follow Instructions for: As Tolerated, No Restrictions, Diet Activities you can perform: Regular-No Restrictions Follow up Referrals: BEAUTY DIRECTOR - 1 Week PCP Follow-up - 1 Week New Medications: Vit-Iron Carbonyl ( Plus Iron 29-1 mg) 1 Tab Tab 1 TAB PO DAILY, #30 TAB 1 Refill Continued Medications: Alprazolam (Xanax) 0.25 Mg Tab 0.25 MG PO Q4H PRN for ANXIETY, TAB 0 Refills Florian Ray MD R2 Dec 31, 2016 11:50
== END 2016-12-31 12:52 | DRG 781 ==
LOC: NEPC 05:29 → NEDA 10:45 → N07A 12:07
PROVIDERS: ADMIT Family Medicine; ATTEND Family Medicine
DX: O9A.211 Injury, poisoning and certain other consequences of external causes complicating pregnancy, first trimester (principal); F41.9 Anxiety disorder, unspecified; F17.210 Nicotine dependence, cigarettes, uncomplicated; T39.1X2A Poisoning by 4-Aminophenol derivatives, intentional self-harm, initial encounter; Z3A.11 11 weeks gestation of pregnancy; O99.331 Smoking (tobacco) complicating pregnancy, first trimester; Z20.2 Contact with and (suspected) exposure to infections with a predominantly sexual mode of transmission; O99.341 Other mental disorders complicating pregnancy, first trimester
CPT/HCPCS: 76801; 80048; 80053; 80307; 81001; 83735; 84484; 84702; 85025; 85027; 85610; 85730; 86592; 86703; 87491; 87591; 93005; 96361; 96374; J2405; J7030

== ENCOUNTER 2016-12-31 13:32 | Inpatient (IN) | payer MEDICAID, OTHER ==
[~2016-12-31] VITALS: Ht 170.2 cm; Wt 48.6 kg
[2016-12-31 13:00] VITALS: BP 123/77; PULSE 90; RESP 18; TEMP 97.9; O2SAT 98
[~2016-12-31 13:32] MED LIST changes: +ALPR.25 PO; +PREN29TA PO; -Z.0.NO CURRENT MEDS
[2016-12-31] MEDS ORDERED: ACETAMINOPHEN 325 MG TAB PO PRN (14:00)
[2016-12-31] MEDS ORDERED: LORazepam 1 MG TAB PO PRN (14:00)
[2016-12-31] MEDS ORDERED: LORazepam 0.5 MG TAB PO PRN (14:00)
[2016-12-31] MEDS ORDERED: LORazepam 2 MG/ML VIAL IM PRN ×2 (14:00)
[2016-12-31] MEDS ORDERED: ALUMINUM/MAGNESIUM/SIMETH 30 ML CUP PO PRN (14:00)
[2016-12-31] MEDS ORDERED: MAGNESIUM HYDROXIDE SUSP 30 ML CUP PO PRN (14:00)
[2017-01-01 06:20] VITALS: BP 116/60; PULSE 102; RESP 18; TEMP 98; O2SAT 99
[2017-01-01] MEDS ORDERED: diphenhydrAMINE HCL 25 MG CAP PO PRN (11:00)
[2017-01-01 13:14] LABS: ANION GAP 9 MEQ/L (5-15); BLOOD UREA NITROGEN 5 MG/DL (7-18); CHLORIDE 103 MEQ/L (98-107); GLOMERULAR FILTRATION RATE 138 ML/MIN (>89); POTASSIUM 3.9 MEQ/L (3.5-5.1); SODIUM (NA) 137 MEQ/L (136-145)
[2017-01-01 13:27] LABS: LDL CHOLESTEROL 78 MG/DL (0-99)
--- NOTE | 2017-01-01 15:24 | HHI.HP ---
Provisional Diagnosis Admission Date Dec 31, 2016 at 13:32 Spencer I. Adjustment disorder with mixed disturbance of emotions and conduct Spencer II. Deferred Spencer III. Denies Spencer IV. Difficulty with current , stressful job Spencer V. 40 Certification of Person's Competence To Provide Express and Informed Consent I have personally examined Aleyda Gonsalves , a person being served at [facility] on, Jan 01, 2017 15:16. Express and informed consent means consent voluntarily given in writing, by a competent person, after sufficient explanation and disclosure of the subject matter involved to enable the person to make a knowing and willful decision without any element of force, fraud, deceit, duress, or other form of constraint or coercion. This person is 18 years of age or older, is not now known to be incompetent to consent to treatment with a guardian advocate, and does not have a health care surrogate or proxy currently making medical treatment decisions. I have found this person to be one of the following: [] Competent to provide express and informed consent, as defined above, for voluntary admission to this facility and is competent to provide express and informed consent for treatment. He/she has the consistent capacity to make well reasoned, willful, and knowing decisions concerning his or her medical or mental health treatment. The person fully and consistently understands the purpose of the admission for examination/placement and is fully capable of personally exercising all rights assured under [place] [] Incompetent to provide express and informed consent to voluntary admission, and this is incompetent to provide express and informed consent to treatment. The person must be transferred to involuntary status and a petition for a guardian advocate filed with the Circuit Court. [x] Refusing to provide express and informed consent to voluntary admission but is competent to provide express and informed consent for treatment. The person must be discharged or transferred to involuntary status. Form shall be completed within 24 hours of a person's arrival at the receiving facility and filed in the clinical record of each person: 1. Admitted on a voluntary basis 2. Permitted to provide express and informed consent to his/her own treatment 3. Allowed to transfer from involuntary to voluntary status 4. Prior to permitting a person to consent to his or her own treatment after having been previously found incompetent to consent to treatment. History of Present Illness Capacity: Has Capacity HPI Patient is a 26-year-old woman, currently in 11 weeks gestation, with no prior psychiatric history no prior psychiatric hospitalizations, suicide attempts or self-injurious behavior who was admitted to the medical floor on for medical stabilization after overdose in a suicide attempt on Tylenol PM in the context of psychosocial stressors. Patient was transferred to the inpatient psychiatry unit was medically stable. Patient states that she has been stressed over her baby, worried about history of hemorrhage in her uterus during this , and having started a job. Patient reports that prior ED visits in a different hospital she was prescribed Xanax. Patient states that prior to her admission she had a rough time which she took one tablet of Xanax and then another and then states that she blacked out and doesnt remember any events thereafter. Patient completely forthcoming with history states that she had called now on but as per chart was noted that patient told mother and mother called EMS. Patient states that her current stressors include her current , her job and distress of being told that her baby might not make it. 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 When recalling events of her overdose patient states that she doesnt recall taking the medications. Patient reports for the past couple of weeks she has been sleeping more, energy has been up and down, concentration or appetite, mood lately has been up and down denies feeling sad or depressed, denies having had any suicidal or homicidal ideations. Patient denies any manic psychotic symptoms. Patient noted to be guarded during interview. As per chart review was noted in previous to that one of the stressors included patient finding out that her cheated on her with her best friend had taken 30 tablets of Tylenol PM although patient did not mention this nor did she stated having taken 30 tablets of anything. Patient at this time denies SI, HI, AVH or delusions. Past psychiatric history: No previous psychiatric diagnosis, denies any previous psychiatric hospitalizations or medication trials, denies any previous suicide attempt or self-injurious behavior. Denies any history of abuse. Family psychiatric history: Father with bipolar disorder Substance use history: Tobacco use 5 cigarettes per day, denies any alcohol use , reports marijuana use in the past she reports having used last 6 weeks ago after finding out she was . Urine toxicology in the emergency department showed positive for marijuana and benzodiazepines. 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 Review of Systems Except as stated in HPI: all other systems reviewed are Neg Past Psych History Psychological trauma history Denies any history of abuse Violence risk - others (6 mos) Low Violence risk - self (6 mos) Moderate to high Substance Abuse History Drugs/Alcohol past 12 months Tobacco use(+), marijuana use(+) Past Family Social History Coded Allergies: No Known Allergies (Verified , 03/12/08) Active Scripts Vit-Iron Carbonyl ( Plus Iron 29-1 mg) 1 Tab Tab, 1 TAB PO DAILY, #30 TAB 1 Refill Prov:Florian Ray MD R2 12/31/16 Reported Medications Alprazolam (Xanax) 0.25 Mg Tab, 0.25 MG PO Q4H Y for ANXIETY, TAB 0 Refills 12/29/16 Discontinued Reported Medications Miscellaneous (No Current Meds) Misc, 0 Refills 03/12/08 Current Medications Medications (Trade) Dose Ordered Sig/Loulou Route Start Time Stop Time Status Last Admin (Ativan) 1 mg Q6H PRN PO 12/31/16 14:00 Future Hold (Ativan Inj) 1 mg Q6H PRN IM 12/31/16 14:00 Future Hold (Ativan) 0.5 mg Q12H PRN PO 12/31/16 14:00 Future Hold (Ativan Inj) 0.5 mg Q12H PRN IM 12/31/16 14:00 Future Hold (Tylenol) 650 mg Q4H PRN PO 12/31/16 14:00 (Milk Of Magnesia Liq) 30 ml DAILY PRN PO 12/31/16 14:00 (Mag-Al Plus Susp Liq) 30 ml Q6H PRN PO 12/31/16 14:00 (Benadryl) 25 mg Q6H PRN PO 01/01/17 11:00 Family History Mother with bipolar disorder Social History domiciled with and 2 children, children currently in the care of the father, patients mother visiting at this time, 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 2) verbal and communicative Physical Exam Patient upon evaluation with not noted to be in distress, no gross motor abnormalities, no tremors, no EPS, no psychomotor agitation or retardation noted Vital Signs Vital Signs Date Time Temp Pulse Resp B/P (MAP) Pulse Ox O2 Delivery O2 Flow Rate FiO2 01/01/17 06:20 98.0 102 18 116/60 (78) 99 Lab Results Labs reviewed. Test 01/01/17 11:12 Blood Urea Nitrogen 5 MG/DL Creatinine 0.53 MG/DL Random Glucose 75 MG/DL Calcium Level 9.7 MG/DL Sodium Level 137 MEQ/L Potassium Level 3.9 MEQ/L Chloride Level 103 MEQ/L Carbon Dioxide Level 25.0 MEQ/L Anion Gap 9 MEQ/L Estimat Glomerular Filtration Rate 138 ML/MIN Triglycerides Level 79 MG/DL Cholesterol Level 142 MG/DL LDL Cholesterol 78 MG/DL HDL Cholesterol 48.0 MG/DL Cholesterol/HDL Ratio 2.95 RATIO Mental Status Examination Appearance Appears stated age, in casual clothing, calm and cooperative interview. Fair eye contact Speech: Unremarkable Orientation: x3 Memory: Unremarkable Thought Process: Linear Thought Content: Unremarkable Language Fluid and spontaneous Fund of Knowledge Average Hallucination Type: None Attention and Concentration: Good Suicidal Ideation: No Previous Suicide Attempts: Yes Homicidal Ideation: No Previous Homicide Attempts: No Insight: Poor Judgment: Poor Affect: Anxious, Sad Mood: Sad, Anxious Motor Activity: Normal gait Assessment & Plan Problem List: (1) Adjustment disorder with mixed disturbance of emotions and conduct ICD Codes: F43.25 - Adjustment disorder with mixed disturbance of emotions and conduct Assessment & Plan Patient is a posterior woman with no past psychiatric history who was brought into the hospital after suicide attempt via overdose with 30 tablets of Tylenol PM in the context of multiple psychosocial stressors. Patient at this time is guarded and minimizes factors that contributed to her recent actions. Patient refuses any pharmacological intervention at this time. Patient will be admitted to the inpatient psychiatry unit on an involuntary status for safety and observation. Second opinion will be requested. Discharge planning in progress. Collateral pending from mother. Discharge Planning In progress Ganesh Adan MD Jan 01, 2017 15:24
[2017-01-01 15:35] LABS: HEMOGLOBIN A1a 1.1 %; HEMOGLOBIN A1b 1.4 %; HEMOGLOBIN Ao 85.5 %; HEMOGLOBIN P3 3.6 %
[2017-01-01 18:14] VITALS: BP 151/81; PULSE 112; RESP 18; TEMP 98.9; O2SAT 95
[2017-01-02 06:53] VITALS: BP 122/66; PULSE 90; RESP 17; TEMP 99; O2SAT 98
--- NOTE | 2017-01-02 07:41 | PD.PSY.CON ---
Provisional Diagnosis Admission Date Dec 31, 2016 at 13:32 Babcock I. 1. Adjustment disorder with mixed disturbance of emotions and conduct Babcock II. Deferred History of Present Illness Service Psychiatry Consult Requested By Dr. Adan Reason for Consult Second opinion for involuntary psychiatric hospitalization Primary Care Physician Everette Emmanuel M.D. HPI From Dr. Adan's H&P: Patient is a 26-year-old woman, currently in 11 weeks gestation, with no prior psychiatric history no prior psychiatric hospitalizations, suicide attempts or self-injurious behavior who was admitted to the medical floor on for medical stabilization after overdose in a suicide attempt on Tylenol PM in the context of psychosocial stressors. Patient was transferred to the inpatient psychiatry unit was medically stable. Patient states that she has been stressed over her baby, worried about history of hemorrhage in her uterus during this , and having started a job. Patient reports that prior ED visits in a different hospital she was prescribed Xanax. Patient states that prior to her admission she had a rough time which she took one tablet of Xanax and then another and then states that she blacked out and doesnt remember any events thereafter. Patient completely forthcoming with history states that she had called now on but as per chart was noted that patient told mother and mother called EMS. Patient states that her current stressors include her current , her job and distress of being told that her baby might not make it. 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 When recalling events of her overdose patient states that she doesnt recall taking the medications. Patient reports for the past couple of weeks she has been sleeping more, energy has been up and down, concentration or appetite, mood lately has been up and down denies feeling sad or depressed, denies having had any suicidal or homicidal ideations. Patient denies any manic psychotic symptoms. Patient noted to be guarded during interview. As per chart review was noted in previous to that one of the stressors included patient finding out that her cheated on her with her best friend had taken 30 tablets of Tylenol PM although patient did not mention this nor did she stated having taken 30 tablets of anything. Patient at this time denies SI, HI, AVH or delusions. Past psychiatric history: No previous psychiatric diagnosis, denies any previous psychiatric hospitalizations or medication trials, denies any previous suicide attempt or self-injurious behavior. Denies any history of abuse. Family psychiatric history: Father with bipolar disorder Substance use history: Tobacco use 5 cigarettes per day, denies any alcohol use , reports marijuana use in the past she reports having used last 6 weeks ago after finding out she was . Urine toxicology in the emergency department showed positive for marijuana and benzodiazepines. 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 Chart reviewed. On my exam, patient reports that she was afraid that she was miscarrying as she has a history of same and so went to [facility]. She was given Xanax and says that she tried to take a few doses when she got home. Her memory of the events after that is reportedly hazy. She does not recall making a Tylenol overdose. She denies any suicidal or homicidal ideation now. Denies any audiovisual hallucinations. No delusional material. No hypomanic or manic symptoms. 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 She says that her family is trying to get her a psychotherapist to assist with this. Remainder of the psychiatric ROS is negative. Past psychiatric history: The patient denies a history of inpatient or outpatient psychiatric treatment. She denies a history of suicide attempts. Family history: Patient denies family history of mental illness. Chemical dependency history: The patient denies any abuse of drugs or alcohol. Social history: The patient reports that she lives with her boyfriend and 2 children. She has a degree from [employer]. She works at a [employer]. Review of Systems Except as stated in HPI: all other systems reviewed are Neg Past Family Social History Coded Allergies: No Known Allergies (Verified , 03/12/08) Past Medical History See electronic medical record Active Scripts Vit-Iron Carbonyl ( Plus Iron 29-1 mg) 1 Tab Tab, 1 TAB PO DAILY, #30 TAB 1 Refill Prov:Florian Ray MD R2 12/31/16 Reported Medications Alprazolam (Xanax) 0.25 Mg Tab, 0.25 MG PO Q4H Y for ANXIETY, TAB 0 Refills 12/29/16 Discontinued Reported Medications Miscellaneous (No Current Meds) Misc, 0 Refills 03/12/08 Current Medications Medications (Trade) Dose Ordered Sig/Loulou Route Start Time Stop Time Status Last Admin (Ativan) 1 mg Q6H PRN PO 12/31/16 14:00 Future Hold (Ativan Inj) 1 mg Q6H PRN IM 12/31/16 14:00 Future Hold (Ativan) 0.5 mg Q12H PRN PO 12/31/16 14:00 Future Hold (Ativan Inj) 0.5 mg Q12H PRN IM 12/31/16 14:00 Future Hold (Tylenol) 650 mg Q4H PRN PO 12/31/16 14:00 (Milk Of Magnesia Liq) 30 ml DAILY PRN PO 12/31/16 14:00 (Mag-Al Plus Susp Liq) 30 ml Q6H PRN PO 12/31/16 14:00 (Benadryl) 25 mg Q6H PRN PO 01/01/17 11:00 Patient's Strengths (min. 2) In a monitored setting. Verbally fluent. Physical Exam Physical exam completed by hospitalist prior to transfer to inpatient psychiatry. On my examination today, the patient appears to be in no acute physical distress. No motor abnormalities noted. Labs and vitals reviewed: Vital Signs Vital Signs Date Time Temp Pulse Resp B/P (MAP) Pulse Ox O2 Delivery O2 Flow Rate FiO2 01/02/17 06:53 99.0 90 17 122/66 (84) 98 Lab Results Test 01/01/17 11:12 Blood Urea Nitrogen 5 MG/DL Creatinine 0.53 MG/DL Random Glucose 75 MG/DL Calcium Level 9.7 MG/DL Sodium Level 137 MEQ/L Potassium Level 3.9 MEQ/L Chloride Level 103 MEQ/L Carbon Dioxide Level 25.0 MEQ/L Anion Gap 9 MEQ/L Estimat Glomerular Filtration Rate 138 ML/MIN Hemoglobin A1c 5.6 % Triglycerides Level 79 MG/DL Cholesterol Level 142 MG/DL LDL Cholesterol 78 MG/DL HDL Cholesterol 48.0 MG/DL Cholesterol/HDL Ratio 2.95 RATIO Mental Status Examination Speech: Unremarkable Orientation: x3 Memory: Unremarkable Thought Process: Logical, Linear Thought Content: Unremarkable Hallucination Type: None Attention and Concentration: Good Suicidal Ideation: No Previous Suicide Attempts: No Homicidal Ideation: No Previous Homicide Attempts: No Insight: Poor Judgment: Poor Affect: Anxious Mood: Other (mildly dysphoric) Motor Activity: Normal gait Assessment & Plan Problem List: (1) Adjustment disorder with mixed disturbance of emotions and conduct ICD Codes: F43.25 - Adjustment disorder with mixed disturbance of emotions and conduct Assessment & Plan Given the circumstances of the patient's presentation here and her presentation on my examination today, I concur with Dr. Adan that the patient meets criteria for involuntary psychiatric hospitalization under the Oneil act. I completed the second opinion paperwork. Further care as per Dr. Adan. Thank you very much for this consultation. Signing off. Discharge Planning Per Arturo Alonso MD Jan 02, 2017 07:41
--- NOTE | 2017-01-02 15:46 | HHI.PYPN ---
Subjective Remarks Patient seen for follow-up, chart reviewed. Patient found sitting in hospital bed, cooperative interview. Patient states that she spoke with her children yesterday she was pleased about. Patient states that she is feeling somewhat stressed about being here in the hospital. Patient states that she was visited by her her mother and her best friend. Patient reports that her mother was trying to set up a follow-up appointment for mental health services but was reassured that the treatment team will arrange for that upon her discharge. When reflecting about events of [facility] patient states that her recent event had a lot to do with being told of the possibility of losing her . She continued to deny this recent overdose as a suicide attempt but able to acknowledge the dangerousness of that action. Patient stated that she was amenable to outpatient follow-up for individual therapy upon discharge. At this time patient reports feeling "good", denies SI, HI, AVH or delusions at this time. Search Planner spoke with patient's EARLY CHILDHOOD DIRECTOR physician Dr. Menon states that he is aware that the patient is the hospital, has ordered an US and plans on seeing the patient in the hospital for follow up later today. Review of Systems Except as stated in HPI: all other systems reviewed are Neg Objective Alert: Yes [place]: Person, Place, Date Mood: Calm Affect: Appropriate Memory Intact: Comment (intact) Hallucinations: Other (denies) Delusions: No Delusion Type: Other (denies) Suicidal: Ideation (denies) Homicidal: Ideation (denies) Insight/Judgment Limited insight, fair impulse control, fair judgment Vitals/IOs Vital Signs Date Time Temp Pulse Resp B/P (MAP) Pulse Ox O2 Delivery O2 Flow Rate FiO2 01/02/17 06:53 99.0 90 17 122/66 (84) 98 Intake and Output 01/02/17 01/02/17 01/02/17 07:59 15:59 23:59 Intake Total 360 ml Balance 360 ml Assessment & Plan Problem List: (1) Adjustment disorder with mixed disturbance of emotions and conduct ICD Codes: F43.25 - Adjustment disorder with mixed disturbance of emotions and conduct Assessment & Plan Patient at this time continues to deny any depressive symptoms, continues to minimize recent overdose denying it being a suicide attempt. Patient has been calm and cooperative with staff with no behavioral dyscontrol. Patient with adequate support system, plans on engaging in outpatient treatment with individual therapy. No psychotropic intervention at this time as patient would like to engage in therapy only due to current . Dr. Menon will see patient today. US ordered by Dr. Menon. Patient likely for discharge back to family tomorrow with referral to outpatient follow up. Discharge planning in progress. Justification for Cont. Inpt. At risk for further decompensation if at lower level of care Ganesh Adan MD Jan 02, 2017 15:46
[2017-01-02 16:23] LABS: AUTOMATED NEUTROPHIL # 6.9 TH/MM3 (1.8-7.7); BASOPHIL % 0.5 % (0.0-2.0); EOSINOPHIL # 0.4 TH/MM3 (0-0.4); EOSINOPHIL % 3.4 % (0.0-4.0); HEMATOCRIT 37.6 % (35.0-46.0); HEMO FLAGS DIFF FINAL; LYMPH % 22.1 % (9.0-44.0); LYMPHOCYTE # 2.3 TH/MM3 (1.0-4.8); MEAN CELL VOLUME 88.2 FL (80.0-100.0); MEAN CORPUSCULAR HEMOGLOBIN 28.8 PG (27.0-34.0); MEAN CORPUSCULAR HGB CONC 32.7 % (32.0-36.0); MONO % 6.6 % (0.0-8.0); NEUT % 67.4 % (16.0-70.0); PLATELET COUNT 373 TH/MM3 (150-450); RED BLOOD COUNT 4.27 MIL/MM3 (4.00-5.30); RED CELL DISTRIBUTION WIDTH 16.8 % (11.6-17.2); WHITE BLOOD COUNT 10.2 TH/MM3 (4.0-11.0)
[2017-01-02 18:29] VITALS: BP 122/73; PULSE 100; RESP 19; TEMP 97.8; O2SAT 98
[2017-01-03 06:06] VITALS: BP 103/66; PULSE 88; RESP 18; TEMP 99.1; O2SAT 97
--- NOTE | 2017-01-03 09:15 | HHI.DS ---
Psychiatry Discharge Summary Inpatient Psychiatric care?: Yes Advance Directive: No Reason Not Provided: Due to Patient Condition Mental Health AdvanceDirective: No Health Care Proxy: No Admission Admission Date Dec 31, 2016 at 13:32 Admission Diagnosis: (1) Adjustment disorder with mixed disturbance of emotions and conduct ICD Code: F43.25 - Adjustment disorder with mixed disturbance of emotions and conduct Brief History From Dr. Adan's H&P: Patient is a 26-year-old woman, currently in 11 weeks gestation, with no prior psychiatric history no prior psychiatric hospitalizations, suicide attempts or self-injurious behavior who was admitted to the medical floor on for medical stabilization after overdose in a suicide attempt on Tylenol PM in the context of psychosocial stressors. Patient was transferred to the inpatient psychiatry unit was medically stable. Patient states that she has been stressed over her baby, worried about history of hemorrhage in her uterus during this , and having started a job. Patient reports that prior ED visits in a different hospital she was prescribed Xanax. Patient states that prior to her admission she had a rough time which she took one tablet of Xanax and then another and then states that she blacked out and doesnt remember any events thereafter. Patient completely forthcoming with history states that she had called now on but as per chart was noted that patient told mother and mother called EMS. Patient states that her current stressors include her current , her job and distress of being told that her baby might not make it. 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 When recalling events of her overdose patient states that she doesnt recall taking the medications. Patient reports for the past couple of weeks she has been sleeping more, energy has been up and down, concentration or appetite, mood lately has been up and down denies feeling sad or depressed, denies having had any suicidal or homicidal ideations. Patient denies any manic psychotic symptoms. Patient noted to be guarded during interview. As per chart review was noted in previous to that one of the stressors included patient finding out that her cheated on her with her best friend had taken 30 tablets of Tylenol PM although patient did not mention this nor did she stated having taken 30 tablets of anything. Patient at this time denies SI, HI, AVH or delusions. Past psychiatric history: No previous psychiatric diagnosis, denies any previous psychiatric hospitalizations or medication trials, denies any previous suicide attempt or self-injurious behavior. Denies any history of abuse. Family psychiatric history: Father with bipolar disorder Substance use history: Tobacco use 5 cigarettes per day, denies any alcohol use , reports marijuana use in the past she reports having used last 6 weeks ago after finding out she was . Urine toxicology in the emergency department showed positive for marijuana and benzodiazepines. 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 Chart reviewed. On my exam, patient reports that she was afraid that she was miscarrying as she has a history of same and so went to [facility]. She was given Xanax and says that she tried to take a few doses when she got home. Her memory of the events after that is reportedly hazy. She does not recall making a Tylenol overdose. She denies any suicidal or homicidal ideation now. Denies any audiovisual hallucinations. No delusional material. No hypomanic or manic symptoms. 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 She says that her family is trying to get her a psychotherapist to assist with this. Remainder of the psychiatric ROS is negative. Past psychiatric history: The patient denies a history of inpatient or outpatient psychiatric treatment. She denies a history of suicide attempts. Family history: Patient denies family history of mental illness. Chemical dependency history: The patient denies any abuse of drugs or alcohol. Social history: The patient reports that she lives with her boyfriend and 2 children. She has a degree from [employer]. She works at a [employer]. Tobacco Use In Past 30 Days: 4 or Less Cigarettes/Day Alcohol Use: Never Hospital Course Patient is a 26-year-old woman, currently in 11 weeks gestation, with no prior psychiatric history no prior psychiatric hospitalizations, suicide attempts or self-injurious behavior who was admitted to the medical floor on for medical stabilization after overdose in a suicide attempt on Tylenol PM in the context of psychosocial stressors. Patient was transferred to the inpatient psychiatry unit was medically stable. Patient upon initial evaluation was noted to have poor recollection of the events surrounding the overdose stating that she could not remember much at that time. Patient denied any history of depressive symptoms but reported recent stressors related to her difficulty maintaining her current . Patient was maintained on the inpatient unit and monitored for any change in mood and behavior which patient was noted to have stable mood, was calm and cooperative with staff with no behavioral dyscontrol. Patient refused any psychotropic intervention at that time due to her concern for her . Patient had family support visit during admission and continued to endorse good mood, denied any thoughts of self harm or to the baby. Upon discharge, patient agreed to follow up with outpatient mental health services for individual therapy. She reported feeling good, denied SI, HI, AVH or delusions. Patient provided with supportive psychotherapy. Patient advised to call 911 or go to nearest ED in case of emergency which she acknowledged. Patient discharged back to family; father was present to take patient home. Results Blood Pressure 103 / 66 Vital Signs Date Time Temp Pulse Resp B/P (MAP) Pulse Ox O2 Delivery O2 Flow Rate FiO2 01/03/17 06:06 99.1 88 18 103/66 (78) 97 Laboratory Tests Test 01/01/17 11:12 01/02/17 15:53 Blood Urea Nitrogen 5 MG/DL (7-18) Laboratory Results Test 01/01/17 11:12 Cholesterol Level 142 MG/DL (120-200) HDL Cholesterol 48.0 MG/DL (40.0-60.0) Hemoglobin A1c 5.6 % (4.3-6.0) LDL Cholesterol 78 MG/DL (0-99) Triglycerides Level 79 MG/DL (42-150) Summary of Procedures None Pending results at discharge: No Medications # of Antipsychotic meds at D/C: 0 Approp Antipsych med options 1 - Minimum of three failed multiple trials of monotherapy. 2 - Documented plan to taper to monotherapy due to previous use of multiple meds OR cross-taper in progress at D/C. 3 - Documentation of augmentation of Clozapine. 4 - Justification other than those listed in allowable values 1-3, document here : Discharge Discharge Date: Jan 03, 2017 Discharge Diagnosis: (1) Adjustment disorder with mixed disturbance of emotions and conduct ICD Code: F43.25 - Adjustment disorder with mixed disturbance of emotions and conduct Mental Status Exam at Disch Appearance/Behavior: appears stated age, in hospital [facility], fair grooming and hygiene, calm and cooperative with interview; fair eye contact; no psychomotor agitation nor retardation noted. Speech: Normal rate tone and prosody Mood: Good Affect: Full, euthymic Thought process: Linear, future oriented, goal directed Thought content: Denies SI, HI, AVH or delusions Insight/impulse control/judgment: Fair Alert and oriented 3 Pt Condition on Discharge: Stable Discharge Disposition: Discharge Home Discharge Instructions Diet Instructions: As Tolerated, No Restrictions Activities you can perform: Regular-No Restrictions Scheduled Appointment: [facility] Appointment Date: Jan 10, 2017 Appointment Time: 2:00 p.m. Discharge Time > 30 minutes Discharge/Advance Care Plan Health Problems: (1) Adjustment disorder with mixed disturbance of emotions and conduct Goals to promote your health * To prevent worsening of your condition and complications * To maintain your health at the optimal level Directions to meet your goals Take your medications as prescribed Follow your dietary instruction Follow activity as directed Keep your appointments as scheduled Take your immunizations and boosters as scheduled If your symptoms worsen call your PCP, if no PCP go to Urgent Care Center or Emergency Room For 26/11 questions related to your inpatient stay or results of tests pending at discharge, please contact Dr. Ganesh Adan at Smoking is Dangerous to Your Health. Avoid second hand smoking Ganesh Adan MD Jan 03, 2017 09:15
--- NOTE | 2017-01-03 11:16 | MB ---
cc: ANA MARÍA KYLE DATE OF CONSULTATION 01/03/2017 REASON FOR CONSULTATION DATE OF 1990 REASON FOR CONSULTATION The patient was admitted through the psychiatric department for attempted suicide, exacerbation of anxiety disorder. PATIENT HISTORY The patient is a 26-year-old female 7, para 2 who is approximately 11 weeks and 3 days on serial ultrasound. The patient was seen in our office for routine obstetrical care on December 25 where ultrasound revealed a single viable intrauterine gestation measuring about 10 weeks and 3 days. She had previously been seen at [facility] emergency department for acute vaginal bleeding and was diagnosed with a subchorionic hemorrhage. There was no evidence of hemorrhage on her ultrasound. In the office, an ultrasound was obtained on this admission confirming a viable intrauterine gestation with normal cardiac activity. No evidence of subchorionic bleed. No fluid in the pelvis. The patient is stable during her admission with no active bleeding. The patient does have some mild nausea and fatigue. OBSTETRICAL HISTORY The patient has had a history of two healthy full-term vaginal deliveries as well as three first trimester losses. The patient denies any other systemic or chronic disease process. ALLERGIES She has an allergy to LATEX. MEDICATIONS Current medications include vitamins. SOCIAL HISTORY She is a quarter to half-a-pack cigarettes a day smoker. Documented use of benzodiazepines and marijuana were noted on her drug screen. The patient had denied use of illicit substances during her office. The patient is . She has no prior history of mental illness or suicide attempts. PAST SURGICAL HISTORY Noncontributory FAMILY HISTORY Noncontributory PHYSICAL EXAMINATION The patient is a well-appearing, well-nourished female in no acute distress. VITAL SIGNS: Stable. HEENT: Shows no adenopathy. LUNGS: Clear. ABDOMEN: Flat and nontender. PELVIC: Exam was deferred. EXTREMITIES: Normal and symmetrical, no cyanosis, clubbing or edema. NEUROLOGIC: Exam is grossly intact. ASSESSMENT The patient is at 11 weeks gestation and 3 days with recent attempted suicide by use of benzodiazepines and Tylenol currently is stable and ready for discharge per her psychiatrist and therapist at [place]. The patient's ultrasound obtained results were reviewed with the patient. The patient was again counseled on physical limitations and restrictions due to the risk of bleeding. She is to make an appointment to be seen in the office within two weeks. She is to resume her vitamins and to call the office for any recurrent bleeding episodes. The patient will be managed by Dr. Ganesh Adan with followup as necessary for psychiatric care. The patient's blood type obtained, which was previously unknown, is A+, RhoGAM was not indicated. MD LAUREEN Mae/FANY /10:50 AM /11:01 AM
== END 2017-01-03 10:45 | disposition home or self-care (01) | DRG 781 ==
LOC: H260 13:32
PROVIDERS: ADMIT Student in an Organized Health Care Education/Training Program; ATTEND Student in an Organized Health Care Education/Training Program
DX: O99.341 Other mental disorders complicating pregnancy, first trimester (principal); O99.321 Drug use complicating pregnancy, first trimester; F43.25 Adjustment disorder with mixed disturbance of emotions and conduct; O99.331 Smoking (tobacco) complicating pregnancy, first trimester; O9A.211 Injury, poisoning and certain other consequences of external causes complicating pregnancy, first trimester; T39.1X2A Poisoning by 4-Aminophenol derivatives, intentional self-harm, initial encounter; F12.90 Cannabis use, unspecified, uncomplicated; F41.9 Anxiety disorder, unspecified; F17.210 Nicotine dependence, cigarettes, uncomplicated; Z3A.11 11 weeks gestation of pregnancy; Z81.8 Family history of other mental and behavioral disorders
CPT/HCPCS: 80048; 80061; 83036; 85025; 86900; 86901